=== PATIENT | female | born 1980 | race Caucasian/White ===

== ENCOUNTER 2019-05-24 08:24 | Day surgery (SDC) | payer OTHER ==
[~2019-05-24] VITALS: Ht 177.8 cm; Wt 99.8 kg
[~2019-05-24 08:24] MED LIST: AMITRIPTYLINE H10 M1 PO; IBU800 MG PO; PERCOCET 7.5-31 EAC1 PO; TIZANIDINE4 MG/1 TA1 PO
[2019-05-24 10:26] VITALS: BP 144/78
== END 2019-05-24 11:25 | disposition home or self-care (01) ==
LOC: OR 08:24 → TBA 08:24 → OR 11:25
DX: T85.11 Breakdown (mechanical) of implanted electronic stimulator of nervous system (principal); M96.1 Postlaminectomy syndrome, not elsewhere classified; M47.816 Spondylosis without myelopathy or radiculopathy, lumbar region; M79.605 Pain in left leg; F17.210 Nicotine dependence, cigarettes, uncomplicated; Z98.890 Other specified postprocedural states; Z79.899 Other long term (current) drug therapy; Z98.1 Arthrodesis status; Y83.8 Other surgical procedures as the cause of abnormal reaction of the patient, or of later complication, without mention of misadventure at the time of the procedure
CPT/HCPCS: 50010; 50101; 50386; 50417; 56524; 56526; 56528; 57199; 57200; 57201; 57429; 57430; 62110; 62900; 70005